=== PATIENT | male | born 1955 | race Caucasian/White ===

== ENCOUNTER 2017-02-13 13:16 | Inpatient (IN) | payer BC, OTHER ==
--- NOTE | 2017-02-13 13:51 | ED ---
General Adult HPI - General Source: police, EMS, RN notes reviewed, old records reviewed Mode of arrival: EMS Limitations: no limitations <Francisco Sibley - Last Filed: 02/13/17 15:56> <Garrett Bingham - Last Filed: 02/13/17 20:51> - General Chief complaint: Overdose Stated complaint: overdose Time Seen by Provider: 02/13/17 13:29 - History of Present Illness Initial comments: This is a 61-year-old male the ER for psychiatric evaluation patient coming in the ER after suicide attempt. Patient attended suicide by taking benzodiazepines with alcohol. Patient is somnolent upon examination but protecting airway and breathing appropriately. (Francisco Sibley) - Related Data Home Medications Medication Instructions Recorded Confirmed Ascorbic Acid [Vitamin C] 500 mg PO DAILY 02/13/17 02/13/17 Aspirin EC [Ecotrin Low Dose] 81 mg PO DAILY 02/13/17 02/13/17 Cholecalciferol [Vitamin D3] 5,000 unit PO DAILY 02/13/17 02/13/17 Diazepam [Valium] 5 mg PO HS 02/13/17 02/13/17 Eszopiclone [Lunesta] 2 mg PO HS 02/13/17 02/13/17 Famotidine [Pepcid] 40 mg PO DAILY 02/13/17 02/13/17 Finasteride [Proscar] 5 mg PO DAILY 02/13/17 02/13/17 Losartan [Cozaar] 50 mg PO DAILY 02/13/17 02/13/17 Methylphenidate HCl [Ritalin] 5 mg PO TID 02/13/17 02/13/17 Methylphenidate HCl [Ritalin] 10 mg PO TID 02/13/17 02/13/17 Multivitamins, Thera [Multivitamin 1 tab PO DAILY 02/13/17 02/13/17 (formulary)] [place]-3 Fatty Acids/Fish Oil [Fish 1 cap PO DAILY 02/13/17 02/13/17 Oil 1,000 mg Softgel] Sertraline [Zoloft] 50 mg PO DAILY 02/13/17 02/13/17 Sildenafil [Revatio] 20 mg PO ONCE PRN 02/13/17 02/13/17 Simvastatin [Zocor] 40 mg PO HS 02/13/17 02/13/17 Testosterone Cypionate 200 mg IM Q14D 02/13/17 02/13/17 [Depo-Testosterone] Allergies Allergy/AdvReac Type Severity Reaction Status Date / Time No Known Allergies Allergy Verified 02/13/17 13:49 Review of Systems ROS Other: All systems not noted in ROS Statement are negative. <Francisco Sibley - Last Filed: 02/13/17 15:56> ROS Other: All systems not noted in ROS Statement are negative. <Garrett Bingham - Last Filed: 02/13/17 20:51> ROS Statement: Those systems with pertinent positive or pertinent negative responses have been documented in the HPI. Past Medical History Past Medical History: Diabetes Mellitus, GERD/Reflux, Prostate Disorder History of Any Multi-Drug Resistant Organisms: None Reported Past Surgical History: No Surgical Hx Reported Past Psychological History: Anxiety, Bipolar, Depression, PTSD Smoking Status: Never smoker Past Alcohol Use History: Occasional Past Drug Use History: None Reported <Francisco Sibley - Last Filed: 02/13/17 15:56> General Exam Limitations: no limitations General appearance: alert, in no apparent distress Head exam: Present: atraumatic, normocephalic, normal inspection Eye exam: Present: normal appearance, PERRL, EOMI. Absent: scleral icterus, conjunctival injection, periorbital swelling ENT exam: Present: normal exam, mucous membranes moist Neck exam: Present: normal inspection. Absent: tenderness, meningismus, lymphadenopathy Respiratory exam: Present: normal lung sounds bilaterally. Absent: respiratory distress, wheezes, rales, rhonchi, stridor Cardiovascular Exam: Present: regular rate, normal rhythm, normal heart sounds. Absent: systolic murmur, diastolic murmur, rubs, gallop, clicks GI/Abdominal exam: Present: soft, normal bowel sounds. Absent: distended, tenderness, guarding, rebound, rigid Extremities exam: Present: normal inspection, full ROM, normal capillary refill. Absent: tenderness, pedal edema, joint swelling, calf tenderness Back exam: Present: normal inspection Neurological exam: Present: alert, oriented X3, CN II-XII intact Psychiatric exam: Present: normal affect, normal mood Skin exam: Present: warm, dry, intact, normal color. Absent: rash <Francisco Sibley - Last Filed: 02/13/17 15:56> EKG Findings - EKG Comments: EKG Findings:: EKG shows normal sinus rhythm rate of 91, [place] 158, QRS 104, QTC 442 <Francisco Sibley - Last Filed: 02/13/17 15:56> Medical Decision Making - Lab Data Result diagrams: 02/13/17 14:20 02/13/17 14:20 <Francisco Sibley - Last Filed: 02/13/17 15:56> - Lab Data Result diagrams: 02/13/17 14:20 02/13/17 14:20 <Garrett Bingham - Last Filed: 02/13/17 20:51> - Medical Decision Making Patient was seen by mental health services, who will admit. (Garrett Bingham) - Lab Data Lab Results 02/13/17 02/13/17 02/13/17 Range/Units 14:20 14:20 14:20 WBC 3.9 (3.8-10.6) k/uL RBC 5.36 (4.30-5.90) m/uL Hgb 15.8 (13.0-17.5) gm/dL Hct 46.3 (39.0-53.0) % MCV 86.4 (80.0-100.0) fL MCH 29.4 (25.0-35.0) pg MCHC 34.1 (31.0-37.0) g/dL RDW 13.4 (11.5-15.5) % Plt Count 147 L (150-450) k/uL Neutrophils % 68 % Lymphocytes % 21 % Monocytes % 7 % Eosinophils % 1 % Basophils % 0 % Neutrophils # 2.6 (1.3-7.7) k/uL Lymphocytes # 0.8 L (1.0-4.8) k/uL Monocytes # 0.3 (0-1.0) k/uL Eosinophils # 0.1 (0-0.7) k/uL Basophils # 0.0 (0-0.2) k/uL Sodium 144 (137-145) mmol/L Potassium 4.5 (3.5-5.1) mmol/L Chloride 109 H (98-107) mmol/L Carbon Dioxide 25 (22-30) mmol/L Anion Gap 10 mmol/L BUN 15 (9-20) mg/dL Creatinine 0.65 L (0.66-1.25) mg/dL Est GFR (MDRD) Af Amer >60 (>60 ml/min/1.73 sqM) Est GFR (MDRD) Non-Af >60 (>60 ml/min/1.73 sqM) Glucose 114 H (74-99) mg/dL Calcium 9.5 (8.4-10.2) mg/dL Total Bilirubin 0.6 (0.2-1.3) mg/dL AST 35 (17-59) U/L ALT 39 (21-72) U/L Alkaline Phosphatase 77 (38-126) U/L Total Creatine Kinase 158 (55-170) U/L CK-MB (CK-2) 2.5 H* (0.0-2.4) ng/mL CK-MB (CK-2) Rel Index 1.6 Total Protein 7.6 (6.3-8.2) g/dL Albumin 4.4 (3.5-5.0) g/dL Urine Color Urine Appearance (Clear) Urine pH (5.0-8.0) Ur Specific [place] (1.001-1.035) Urine Protein (Negative) Urine Glucose (UA) (Negative) Urine Ketones (Negative) Urine Blood (Negative) Urine Nitrite (Negative) Urine Bilirubin (Negative) Urine Urobilinogen (<2.0) mg/dL Ur Leukocyte Esterase (Negative) Salicylates <1.0 mg/dL Urine Opiates Screen (NotDetected) Ur Oxycodone Screen (NotDetected) Urine Methadone Screen (NotDetected) Ur Propoxyphene Screen (NotDetected) Acetaminophen <10.0 ug/mL Ur Barbiturates Screen (NotDetected) U Tricyclic Antidepress (NotDetected) Ur Phencyclidine Scrn (NotDetected) Ur Amphetamines Screen (NotDetected) U Methamphetamines Scrn (NotDetected) U Benzodiazepines Scrn (NotDetected) Urine Cocaine Screen (NotDetected) U Marijuana (THC) Screen (NotDetected) Serum Alcohol 49 mg/dL 02/13/17 Range/Units 14:20 WBC (3.8-10.6) k/uL RBC (4.30-5.90) m/uL Hgb (13.0-17.5) gm/dL Hct (39.0-53.0) % MCV (80.0-100.0) fL MCH (25.0-35.0) pg MCHC (31.0-37.0) g/dL RDW (11.5-15.5) % Plt Count (150-450) k/uL Neutrophils % % Lymphocytes % % Monocytes % % Eosinophils % % Basophils % % Neutrophils # (1.3-7.7) k/uL Lymphocytes # (1.0-4.8) k/uL Monocytes # (0-1.0) k/uL Eosinophils # (0-0.7) k/uL Basophils # (0-0.2) k/uL Sodium (137-145) mmol/L Potassium (3.5-5.1) mmol/L Chloride (98-107) mmol/L Carbon Dioxide (22-30) mmol/L Anion Gap mmol/L BUN (9-20) mg/dL Creatinine (0.66-1.25) mg/dL Est GFR (MDRD) Af Amer (>60 ml/min/1.73 sqM) Est GFR (MDRD) Non-Af (>60 ml/min/1.73 sqM) Glucose (74-99) mg/dL Calcium (8.4-10.2) mg/dL Total Bilirubin (0.2-1.3) mg/dL AST (17-59) U/L ALT (21-72) U/L Alkaline Phosphatase (38-126) U/L Total Creatine Kinase (55-170) U/L CK-MB (CK-2) (0.0-2.4) ng/mL CK-MB (CK-2) Rel Index Total Protein (6.3-8.2) g/dL Albumin (3.5-5.0) g/dL Urine Color Colorless Urine Appearance Clear (Clear) Urine pH 5.0 (5.0-8.0) Ur Specific [place] 1.003 (1.001-1.035) Urine Protein Negative (Negative) Urine Glucose (UA) Negative (Negative) Urine Ketones Negative (Negative) Urine Blood Negative (Negative) Urine Nitrite Negative (Negative) Urine Bilirubin Negative (Negative) Urine Urobilinogen <2.0 (<2.0) mg/dL Ur Leukocyte Esterase Negative (Negative) Salicylates mg/dL Urine Opiates Screen Not Detected (NotDetected) Ur Oxycodone Screen Not Detected (NotDetected) Urine Methadone Screen Not Detected (NotDetected) Ur Propoxyphene Screen Not Detected (NotDetected) Acetaminophen ug/mL Ur Barbiturates Screen Not Detected (NotDetected) U Tricyclic Antidepress Not Detected (NotDetected) Ur Phencyclidine Scrn Not Detected (NotDetected) Ur Amphetamines Screen Not Detected (NotDetected) U Methamphetamines Scrn Not Detected (NotDetected) U Benzodiazepines Scrn Detected H (NotDetected) Urine Cocaine Screen Not Detected (NotDetected) U Marijuana (THC) Screen Not Detected (NotDetected) Serum Alcohol mg/dL Disposition <Francisco Sibley - Last Filed: 02/13/17 15:56> <Garrett Bingham - Last Filed: 02/13/17 20:51> Clinical Impression: Depression, Suicide attempt Disposition: TRANSFER TO PSYCH HOSP/UNIT
[2017-02-13] MEDS ORDERED: NALOXONE 0.4 MG/ML 10 ML VIAL IVP STA (13:57)
[2017-02-13 14:47] LABS: Appearance,Urine Clear (Clear); Bilirubin,Urine Negative (Negative); Glucose,Urine (UA) Negative (Negative); Ketones,Urine Negative (Negative); Leukocyte Esterase,Urine Negative (Negative); Nitrite,Urine Negative (Negative); Protein,Urine Negative (Negative); Specific Gravity,Urine 1.003 (1.001-1.035); UA Billing (MACRO vs. MICRO) CHEM; Urobilinogen,Urine <2.0 mg/dL (<2.0)
[2017-02-13 14:59] LABS: Basophils % (A) 0 %; CH 30.1; Eosinophils # (A) 0.1 k/uL (0-0.7); Eosinophils % (A) 1 %; HCT 46.3 % (39.0-53.0); HDW 2.88; HGB 15.8 gm/dL (13.0-17.5); Luc # (Auto) 0.09; Luc % (Auto) 2; Lymphocytes # (A) 0.8 k/uL (1.0-4.8); Lymphocytes % (A) 21 %; MCH 29.4 pg (25.0-35.0); MCHC 34.1 g/dL (31.0-37.0); MCV 86.4 fL (80.0-100.0); Mean Platelet Volume 7.6; Monocytes # (A) 0.3 k/uL (0-1.0); Monocytes % (A) 7 %; Neutrophils # (A) 2.6 k/uL (1.3-7.7); Neutrophils % (A) 68 %; RBC 5.36 m/uL (4.30-5.90); RDW 13.4 % (11.5-15.5); WBC 3.9 k/uL (3.8-10.6); WBC (Perox) 3.68
[2017-02-13 15:12] LABS: ALT 39 U/L (21-72); AST 35 U/L (17-59); Acetaminophen <10.0 ug/mL; Alcohol 49 mg/dL; Alkaline Phosphatase 77 U/L (38-126); Anion Gap 10 mmol/L; Blood Urea Nitrogen 15 mg/dL (9-20); Calcium 9.5 mg/dL (8.4-10.2); Carbon Dioxide 25 mmol/L (22-30); Chloride 109 mmol/L (98-107); Glucose 114 mg/dL (74-99); Non-African American GFR(MDRD) >60 (>60 ml/min/1.73 sqM); Potassium 4.5 mmol/L (3.5-5.1); Salicylate <1.0 mg/dL; Sodium 144 mmol/L (137-145); Total Bilirubin 0.6 mg/dL (0.2-1.3); Total Protein 7.6 g/dL (6.3-8.2)
[2017-02-13 15:31] LABS: Creatine Kinase MB 2.5 ng/mL (0.0-2.4)
[2017-02-14] MEDS ORDERED: MAGNESIUM HYDROXIDE 2,400 MG/10 ML CUP PO PRN (03:11)
[2017-02-14] MEDS ORDERED: ACETAMINOPHEN TAB 325 MG TAB PO PRN (03:11)
[2017-02-14] MEDS ORDERED: MAG HYDROX/AL HYDROX/SIMETH 30 ML CUP PO PRN (03:11)
[2017-02-14] MEDS ORDERED: NICOTINE 14MG/24HR PATCH TRANSDERM SCH (09:00)
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
--- NOTE | 2017-02-14 12:18 | P.CONS ---
History of Present Illness - Reason for Consult Consult date: 02/14/17 Medical management Requesting physician: Kai Diaz - Chief Complaint Depression with suicidal ideation - History of Present Illness This is a 61-year-old male, patient of [facility]. He has a known past medical history of GERD, BPH, anxiety, bipolar, depression and posterior max stress disorder. Patient is difficult to obtain history from. He is lying in bed and only answer a few questions at a time. Most of information was taken from the chart. It appears patient was brought into the emergency room after a petition was completed by the police. Patient had taken 55 Valium and a bottle of wine to intentionally overdose. Patient was therefore admitted to the psychiatric unit. We have been consulted for medical management. Urinalysis positive for benzo diazepam. Alcohol level was 49. Patient is currently sleepy. Denies any abdominal pain. Denies a nausea or vomiting. He is arousable able to answer a few questions. But is not very forthcoming with information. He does have flat affect. Arms are crossed his chest laying in bed and will open his eyes. He denies any chest pain or shortness of breath. Denies any burning with urination or any difficulty urinating. Patient denies any daily heavy alcohol use. Review of Systems Please refer to HPI otherwise unremarkable Past Medical History Past Medical History: Diabetes Mellitus, GERD/Reflux, Prostate Disorder History of Any Multi-Drug Resistant Organisms: None Reported Past Surgical History: No Surgical Hx Reported Past Psychological History: Anxiety, Bipolar, Depression, PTSD Smoking Status: Never smoker Past Alcohol Use History: Occasional Past Drug Use History: None Reported Medications and Allergies Home Medications Medication Instructions Recorded Confirmed Type Ascorbic Acid [Vitamin C] 500 mg PO DAILY 02/13/17 02/14/17 History Aspirin EC [Ecotrin Low Dose] 81 mg PO DAILY 02/13/17 02/14/17 History Cholecalciferol [Vitamin D3] 5,000 unit PO DAILY 02/13/17 02/14/17 History Diazepam [Valium] 5 mg PO HS 02/13/17 02/14/17 History Eszopiclone [Lunesta] 2 mg PO HS 02/13/17 02/14/17 History Famotidine [Pepcid] 40 mg PO DAILY 02/13/17 02/14/17 History Finasteride [Proscar] 5 mg PO DAILY 02/13/17 02/14/17 History Losartan [Cozaar] 50 mg PO DAILY 02/13/17 02/14/17 History Methylphenidate HCl [Ritalin] 5 mg PO TID 02/13/17 02/14/17 History Methylphenidate HCl [Ritalin] 10 mg PO TID 02/13/17 02/14/17 History Multivitamins, Thera [Multivitamin 1 tab PO DAILY 02/13/17 02/14/17 History (formulary)] [place]-3 Fatty Acids/Fish Oil [Fish 1 cap PO DAILY 02/13/17 02/14/17 History Oil 1,000 mg Softgel] Sertraline [Zoloft] 50 mg PO DAILY 02/13/17 02/14/17 History Sildenafil [Revatio] 20 mg PO ONCE PRN 02/13/17 02/14/17 History Simvastatin [Zocor] 40 mg PO HS 02/13/17 02/14/17 History Testosterone Cypionate 200 mg IM Q14D 02/13/17 02/14/17 History [Depo-Testosterone] Allergies Allergy/AdvReac Type Severity Reaction Status Date / Time No Known Allergies Allergy Verified 02/14/17 05:40 Physical Exam Vitals: Vital Signs Pulse Resp BP Pulse Ox 02/14/17 00:58 68 16 108/71 96 Intake and Output 02/13/17 02/14/17 02/14/17 22:59 06:59 14:59 Intake Total 1000 Balance 1000 Intake: Amount of Fluid Infused ( 1000 ml) Other: Weight 91.6 kg Head normocephalic Neck supple Lungs clear to auscultation bilaterally no wheezing or crackles Heart regular rate and rhythm S1-S2, no rub or gallop Abdomen is soft nontender nondistended positive bowel sounds no hepatosplenomegaly Extremities no edema Neuro alert and orientated to 3 psychiatric flat affect. Lying in bed eyes closed with arms crossed chest. And she is very minimal questions. Results CBC & Chem 7: 02/13/17 14:20 02/13/17 14:20 Assessment and Plan Plan: 1. Major depressive disorder with suicidal ideation with attempt: Patient took about 55 Valium and a bottle wine. Has been admitted to the psychiatric unit. Agree with checking thyroid levels. EtOH level on admit 49 2. Reported history of traumatic brain injury 3. Hyperlipidemia continue Zocor 4. Benign prostatic hypertrophy: Continue with Proscar 5. Essential hypertension: Blood pressures have been on the lower side. We'll place parameters around the Cozaar to hold for systolic blood pressures less than 120. Continue monitoring vitals. 6. Reported past medical history of diabetes mellitus. Patient reports at one time he had been on hypoglycemic medication. However, his doctor took him off of it. Check hemoglobin A1c. Blood sugar on admission was 114 7. GERD resume Pepcid 8. History of generalized anxiety disorder, bipolar, depression and PTSD Thank you for this consultation. We will follow along as needed. Time with Patient: Greater than 30 (Greater than 50% of the total time spent in counseling and coordination of care.I performed an examination of the patient and discussed their management with the physician Consultant Rn. I have reviewed the Physician Consultant Rn's notes and agree with the documented findings and plan of care)
[2017-02-14 15:24] LABS: Hemoglobin A1C 5.5 % (4.2-6.1)
[2017-02-14] MEDS: ATORVASTATIN 20 MG TAB PO SCH (21:35)
--- NOTE | 2017-02-15 08:21 | P.PN ---
Progress Note - Text Interval history: The patient is found in the hallway he follows me to an interview room. The patient is alert and able to participate in the session today as compared to yesterday. He states that he did intent on ending his life with the overdose of Valium and alcohol. He states he feels overwhelmed by his 's hoarding behavior and can't tolerate it any longer. He now plans on from her and hopes that this will change her ways. He believes he does have support from family and they will be visiting. We discussed his previous medications. He does not feel that the Zoloft is provided any benefit he has been on a higher dose than last prescribed. We discussed options in terms of medication. Lacking insight the patient asks if he can be discharged this weekend. We discussed the seriousness of his overdose and that we need to appropriately evaluate him for safety risk. We also discussed the involuntary process that was started as he was not able to sign in. Mental status exam: The patient is alert he has a disheveled appearance he is dressed in hospital attire. Eye contact is appropriate speech is fluent spontaneous nonpressured. 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 Affect is blunted. He is reporting no suicidal or homicidal thoughts today. He is endorsing no auditory or visual hallucinations. He demonstrates no verbal or physical aggressiveness. Insight and judgment impaired. Plan: The patient will start on Lexapro 10 mg daily as we will replace the Zoloft. He has Ativan as needed. We will defer restarting the Ritalin. We will monitor him for safety and encourage his participation in the milieu. Vital signs reviewed.
[2017-02-15] MEDS ORDERED: NON-FORMULARY DRUG (Omega-3 Fatty Acids/Fish Oil [Fish Oil 1,000 Mg Softgel] 1 CAP) PO SCH (09:00)
[2017-02-15] MEDS: ASPIRIN 81 MG CHEW PO SCH (09:32)
[2017-02-15] MEDS: ESCITALOPRAM 10 MG TAB PO SCH (09:32)
[2017-02-15] MEDS: FAMOTIDINE 20 MG TAB PO SCH (09:32)
[2017-02-15] MEDS: FINASTERIDE 5 MG TAB PO SCH (09:33)
[2017-02-15] MEDS: LOSARTAN 50 MG TAB PO SCH (09:33)
[2017-02-15 11:22] LABS: Basophils % (A) 0 %; CH 30.1; CHCM 35.2; Eosinophils # (A) 0.1 k/uL (0-0.7); Eosinophils % (A) 2 %; HCT 44.6 % (39.0-53.0); HDW 2.88; HGB 15.1 gm/dL (13.0-17.5); Luc # (Auto) 0.09; Luc % (Auto) 2; Lymphocytes # (A) 1.3 k/uL (1.0-4.8); Lymphocytes % (A) 29 %; MCHC 33.8 g/dL (31.0-37.0); MCV 85.9 fL (80.0-100.0); Mean Platelet Volume 7.6; Monocytes # (A) 0.4 k/uL (0-1.0); Monocytes % (A) 8 %; Neutrophils # (A) 2.6 k/uL (1.3-7.7); Neutrophils % (A) 59 %; RBC 5.19 m/uL (4.30-5.90); RDW 13.3 % (11.5-15.5); WBC 4.4 k/uL (3.8-10.6); WBC (Perox) 4.22
[2017-02-15 11:39] LABS: ALT 37 U/L (21-72); AST 24 U/L (17-59); Alkaline Phosphatase 65 U/L (38-126); Anion Gap 8 mmol/L; Blood Urea Nitrogen 15 mg/dL (9-20); Calcium 9.7 mg/dL (8.4-10.2); Carbon Dioxide 27 mmol/L (22-30); Chloride 106 mmol/L (98-107); Glucose 99 mg/dL (74-99); Non-African American GFR(MDRD) >60 (>60 ml/min/1.73 sqM); Potassium 3.8 mmol/L (3.5-5.1); Sodium 141 mmol/L (137-145); Total Bilirubin 0.5 mg/dL (0.2-1.3)
[2017-02-15] MEDS: CHOLECALCIFEROL 1,000 UNIT TAB PO SCH (13:23)
[2017-02-15] MEDS: MULTIVITAMINS, THERA 1 EACH TAB PO SCH (13:24)
[2017-02-15] MEDS ORDERED: ATORVASTATIN 20 MG TAB ONE (22:12)
[2017-02-15] MEDS ORDERED: LORazepam 1 MG TAB ONE (22:12)
--- NOTE | 2017-02-16 09:09 | P.PN ---
Progress Note - Text Interval history: The patient is found in the hallway he follows me to an interview room. He reports that his moods improving. He states he is glad that he survived the suicide attempt as he is more aware of how much this is impacted his family. He states that his daughters visited last evening. He continues to speak about being overwhelmed by his 's hoarding behavior. He feels that financially he has been taken advantage of. He plans to separate from his by residing in a rental home that he owns. He has no questions or concerns regarding the Lexapro. Mental status exam: The patient is alert he seated calmly eye contact is appropriate. Hygiene is adequate he is a disheveled appearance. He has spontaneous speech that is fluent and nonpressured. He is reporting no acute suicidal or homicidal ideation intent or plan he is reporting no auditory or visual hallucinations no specific delusions. He does not appear hypomanic or manic. He demonstrates no verbal or physical aggressiveness. Insight and judgment improving. Plan: The patient will be continued on the Lexapro. We will continue to monitor him for safety. He is demonstrating future oriented thinking. We will have long term care social worker arrange a support meeting that will likely involve his daughters. Vital signs reviewed.
[2017-02-16] MEDS: LOSARTAN 50 MG TAB PO SCH (09:39)
[2017-02-16] MEDS: ESCITALOPRAM 10 MG TAB PO SCH (09:39)
[2017-02-16] MEDS: ASPIRIN 81 MG CHEW PO SCH (09:39)
[2017-02-16] MEDS: FAMOTIDINE 20 MG TAB PO SCH (09:39)
[2017-02-16] MEDS: FINASTERIDE 5 MG TAB PO SCH (09:40)
[2017-02-16] MEDS: MULTIVITAMINS, THERA 1 EACH TAB PO SCH (12:53)
[2017-02-16] MEDS: CHOLECALCIFEROL 1,000 UNIT TAB PO SCH (12:53)
[2017-02-16] MEDS: ATORVASTATIN 20 MG TAB PO SCH ×2 (18:10→21:29)
[2017-02-16] MEDS: LORazepam 1 MG TAB PO PRN (21:30)
--- NOTE | 2017-02-17 09:11 | P.PN ---
Progress Note - Text Interval history: The patient is found in the dining room he follows me to an interview room. He reports that sleep is stable appetite is stable. He had more visits from his children yesterday. He again explains the circumstances precipitating the overdose. He felt completely overwhelmed by his 's hoarding behavior and some mismanagement of finances. He is convinced that he needs to move out into another home that he owns to give her time to decide if she will change her behavior or if they will permanently separate. He feels supported by his children. We discussed social work initiating a family meeting and he is agreeable. We have been using Lexapro he has no questions or concerns regarding that medication. Mental status exam: The patient is alert pleasant cooperative. He has a disheveled appearance hygiene is good. He is dressed in his own clothing wearing jeans and a sweatshirt. Speech is fluent spontaneous nonpressured. He is verbose but easily directable. He is reporting no acute suicidal ideation intent or plan since he's been in the hospital. He is endorsing no homicidal ideation intent or plan. He does have a history of head injury he can be direct with statements at times and may be concrete. Insight and judgment improving. He is reporting no auditory or visual hallucinations no specific delusions. He demonstrates no verbal or physical aggressiveness. He is oriented to person place and date. Plan: The patient's will continue on the Lexapro is written. He is encouraged to infrequently used Ativan. We discussed the possibility of him no longer taking benzodiazepines because of the safety risk. He is participating in the milieu he is encouraged to continue. Social work will be asked to arrange a support meeting. I believe the support meeting will provide us more information allowing us to decide a discharge date. He to monitor him for safety. Vital signs reviewed.
[2017-02-17] MEDS: ESCITALOPRAM 10 MG TAB PO SCH (09:47)
[2017-02-17] MEDS: ASPIRIN 81 MG CHEW PO SCH (09:47)
[2017-02-17] MEDS: FAMOTIDINE 20 MG TAB PO SCH (09:47)
[2017-02-17] MEDS: MULTIVITAMINS, THERA 1 EACH TAB PO SCH (09:48)
[2017-02-17] MEDS: LOSARTAN 50 MG TAB PO SCH (09:48)
[2017-02-17] MEDS: FINASTERIDE 5 MG TAB PO SCH (09:48)
[2017-02-17] MEDS: CHOLECALCIFEROL 1,000 UNIT TAB PO SCH (09:48)
[2017-02-17] MEDS: ATORVASTATIN 20 MG TAB PO SCH (21:13)
[2017-02-17] MEDS: LORazepam 1 MG TAB PO PRN (21:13)
[2017-02-18 06:16] VITALS: RESP 16
--- NOTE | 2017-02-18 09:16 | P.PN ---
Progress Note - Text Interval history: The patient is found in the hallway he follows me to an interview room. He reports that his moods improving. He is having any support meeting involving his oldest daughter today at 10 AM. He reports sleep is stable appetite is stable. He continues to describe the plan of living in his own home hoping that this will force his to change her hoarding behavior. He feels he will be supported by his children once discharged. He is reporting no questions or concerns regarding the Lexapro. Vital signs reviewed. Mental status exam: The patient is alert he is seated calmly eye contact is appropriate. He reports mood is improving. He is reporting no suicidal or homicidal ideation intent or plan. He is endorsing no auditory or visual hallucinations no specific delusions. He does not appear hypomanic or manic. He does struggle with short-term memory due to his head injury. Each day he really describes the circumstances precipitating this admission. Insight and judgment are chronically limited to some extent but grossly intact. He is fully oriented to person place and date. He demonstrates no verbal or physical aggressiveness. Plan: The patient will continue on his current psychotropic medication. We will await the results of the family meeting today. He does appear to be stabilizing. We will consider discharging him at the latest Friday. We continue to address his safety risk factors. I have made contact with his outpatient treating psychiatrist. We will continue monitoring him for safety.
[2017-02-18] MEDS: LOSARTAN 50 MG TAB PO SCH (10:17)
[2017-02-18] MEDS: FINASTERIDE 5 MG TAB PO SCH (10:17)
[2017-02-18] MEDS: ASPIRIN 81 MG CHEW PO SCH (10:18)
[2017-02-18] MEDS: ESCITALOPRAM 10 MG TAB PO SCH (10:19)
[2017-02-18] MEDS: FAMOTIDINE 20 MG TAB PO SCH (10:19)
[2017-02-18] MEDS: LORazepam 1 MG TAB PO PRN ×2 (13:00→21:33)
[2017-02-18] MEDS: MULTIVITAMINS, THERA 1 EACH TAB PO SCH (13:00)
[2017-02-18] MEDS: CHOLECALCIFEROL 1,000 UNIT TAB PO SCH (13:00)
[2017-02-18] MEDS: ATORVASTATIN 20 MG TAB PO SCH (21:32)
[2017-02-19 07:01] VITALS: BP 113/61; PULSE 59; TEMP 97.9
--- NOTE | 2017-02-19 09:35 | P.DS ---
Providers Date of admission: 02/13/17 23:36 Expected date of discharge: 02/19/17 Attending physician: Kai Diaz Consults: 02/14/17 03:11 Consult Physician Routine Consulting Provider: Geovanna Rubin Consult Reason/Comments: medical management Do you want consulting provider notified?: Yes, Notify in am Primary care physician: Tiffanie Colón - Discharge Diagnosis(es) (1) Major depressive disorder, recurrent severe without psychotic features Current Visit: Yes Status: Acute Priority: High (2) History of traumatic brain injury Current Visit: Yes Status: Acute Priority: Medium Hospital Course: This patient is a 61-year-old male who was admitted to the mental health unit after attempting suicide with overdose of benzodiazepines with alcohol. The patient had admitted to taking 55-60 Valium tablets and drank a bottle of wine. He had reported he does not want to live anymore and he was sick of living. Upon initial interview the patient refused to come to an interview room he was lethargic but did state he was suicidal. Once the effects of the Valium and alcohol wore off he became much more alert and cooperative. He described feeling overwhelmed by his 's hoarding behavior and couldn't reside in that home any longer. For full details please refer to my psychiatric evaluation dated 02/14/2017. Summary of hospital course: The patient was initially admitted on a petition and clinical certificate. I did complete a second clinical certificate as he was not able to sign in voluntarily at the time. He did sign a deferral agreement in the presence of his central station operator. The patient was started on Lexapro during the course of his stay. As soon as he became more alert and awake he attended groups he ate appropriately he cause no disruptive behavior. He does have a history of head injury which does affect his cognitive function. Each day he would retell me the story of being frustrated with his 's hoarding behavior and he can't live there any longer. Fortunately he has significant financial resources he has another home in the area in which she can live. He was visited by his children here on the mental health unit and finds them supportive. They are assisting him in moving into his own home. His daughter was present for a support meeting yesterday which went well. She indicated to social work that she will oversee the patient's medications. The patient is willing to continue working with his individual therapist and outpatient psychiatrist. Dr. Zimmerman was notified that the patient was admitted to the hospital. Mental status exam: The patient is alert he is pleasant and cooperative he has adequate hygiene grooming. He is dressed appropriately in his own clothing. Eye contact is good speech is fluent spontaneous nonpressured. He reports his mood is "better" affect is euthymic and congruent to reported mood. He denies having any suicidal or homicidal ideation intent or plan area he does not feel hopeless and in fact feels much more optimistic as he will have his own place that he is able to keep clean. He demonstrates future oriented thinking in stating that he wants to return to his job as he enjoys that activity. He is reporting no auditory or visual hallucinations he is reporting no specific delusions. There is no evidence of psychosis. He does not appear hypomanic or manic. He does chronically struggle with some cognitive deficits in the form of impaired concentration and short-term memory. He demonstrates no verbal or physical aggressiveness. He is oriented to person place and date. Impressions: 1. Major depressive disorder recurrent severe without psychosis, history traumatic brain injury causing cognitive deficits, anxiety unspecified 2. History traumatic brain injury, hyperlipidemia, benign prostatic hypertrophy , GERD, recent overdose with Valium and alcohol prior to this admission 3. Marital strain Plan: The patient will be discharged to the mental health unit today he will return to his own home. We believe that he is well supported by his children his daughter will check on him regularly and oversee his medications. He is prescribed Lexapro 10 mg daily. He may continue his Ritalin as prescribed by Dr. Zimmerman. It is recommended that he no longer use any benzodiazepines on a regular basis. He is instructed not to use alcohol or any illicit drugs. Social work will confirm his outpatient appointments. There is no imminent safety risk he is appropriate for transition back to outpatient care. He is instructed to return to the hospital if any acute safety concerns. Patient Condition at Discharge: Stable Plan - Discharge Summary New Discharge Prescriptions: Escitalopram [Lexapro] 10 mg PO DAILY #30 tab Discharge Medication List Ascorbic Acid [Vitamin C] 500 mg PO DAILY 02/13/17 [History] Aspirin EC [Ecotrin Low Dose] 81 mg PO DAILY 02/13/17 [History] Cholecalciferol [Vitamin D3] 5,000 unit PO DAILY 02/13/17 [History] Famotidine [Pepcid] 40 mg PO DAILY 02/13/17 [History] Finasteride [Proscar] 5 mg PO DAILY 02/13/17 [History] Losartan [Cozaar] 50 mg PO DAILY 02/13/17 [History] Methylphenidate HCl [Ritalin] 5 mg PO TID 02/13/17 [History] Methylphenidate HCl [Ritalin] 10 mg PO TID 02/13/17 [History] Multivitamins, Thera [Multivitamin (formulary)] 1 tab PO DAILY 02/13/17 [History ] [place]-3 Fatty Acids/Fish Oil [Fish Oil 1,000 mg Softgel] 1 cap PO DAILY [History] Sildenafil [Revatio] 20 mg PO ONCE PRN 02/13/17 [History] Simvastatin [Zocor] 40 mg PO HS 02/13/17 [History] Testosterone Cypionate [Depo-Testosterone] 200 mg IM Q14D 02/13/17 [History] Escitalopram [Lexapro] 10 mg PO DAILY #30 tab 02/19/17 [Rx] Follow up Appointment(s)/Referral(s): [facility] [Outside] - 02/27/17 10:40 am (Dr Zimmerman ) Tiffanie Colón DO [Primary Care Provider] - 1-2 days
[2017-02-19] MEDS: FINASTERIDE 5 MG TAB PO SCH (10:13)
[2017-02-19] MEDS: ASPIRIN 81 MG CHEW PO SCH (10:13)
[2017-02-19] MEDS: LOSARTAN 50 MG TAB PO SCH (10:13)
[2017-02-19] MEDS: ESCITALOPRAM 10 MG TAB PO SCH (10:14)
[2017-02-19] MEDS: FAMOTIDINE 20 MG TAB PO SCH (10:14)
== END 2017-02-19 12:48 | disposition home or self-care (01) | DRG 885 ==
LOC: EC 13:16 → 3MHU 23:36
PROVIDERS: ADMIT Psychiatry & Neurology Psychiatry; ATTEND Psychiatry & Neurology Psychiatry
DX: F33.2 Major depressive disorder, recurrent severe without psychotic features (principal); E11.9 Type 2 diabetes mellitus without complications; E78.5 Hyperlipidemia, unspecified; F43.10 Post-traumatic stress disorder, unspecified; K21.9 Gastro-esophageal reflux disease without esophagitis; N40.0 Benign prostatic hyperplasia without lower urinary tract symptoms; Z79.899 Other long term (current) drug therapy; Z87.820 Personal history of traumatic brain injury; Z91.5 Personal history of self-harm; Z79.82 Long term (current) use of aspirin
CPT/HCPCS: 36415; 80053; 80306; 80320; 81003; 82550; 82553; 83036; 83520; 84443; 85025; 93005

== ENCOUNTER 2019-09-14 21:48 | Emergency (ER) | payer BC, OTHER ==
--- NOTE | 2019-09-14 22:27 | XR ---
EXAMINATION TYPE: XR chest 2V DATE OF EXAM: 09/14/2019 COMPARISON: 01/28/2013 HISTORY: Cough TECHNIQUE: Frontal and lateral views of the chest are obtained. FINDINGS: Heart and mediastinum are normal. Lungs are clear. Diaphragm is normal. Bony thorax appear s normal. IMPRESSION: Normal chest. No change.
[2019-09-14] MEDS ORDERED: methylPREDNISolone SOD SUCCI 125 MG/2 ML VIAL IM ONE (23:29)
[2019-09-14] MEDS ORDERED: BENZONATATE 100 MG CAP PO STA (23:29)
[2019-09-14] MEDS ORDERED: IPRATROPIUM-ALBUTEROL 3 ML NEB INHALATION STA (23:29)
--- NOTE | 2019-09-15 00:15 | ED ---
URI HPI - General Chief Complaint: Upper Respiratory Infection Stated Complaint: Sinus infection Time Seen by Provider: 09/14/19 23:12 Source: patient Mode of arrival: ambulatory Limitations: no limitations - History of Present Illness Initial Comments: 63-year-old male patient presents to the emergency department today for evaluation of upper respiratory infection and fever. Patient states his been sick for the last month with cough, nasal congestion, and drainage. Patient states he did see his primary care physician was given antibiotics. States he did start to improve however approximately 5 days ago symptoms seemed to worsen again. States he has been taking Advil and [id number] cough medication for symptom relief. Patient states he feels like he is worsening rather than getting better. Denies sputum production. He denies any chest pain or shortness of breath. States he does feel like he is wheezing at times. Denies any histor y of COPD or history of cigarette use. Denies dizziness or weakness. Denies any palpitations. Patient denies any recent rash, abdominal pain, nausea, vomiting, diarrhea, constipation, back pain, numbness, tingling, hematuria, dysuria, urinary urgency, urinary frequency, headache, visual changes, or any other complaints. - Related Data Home Medications Medication Instructions Recorded Confirmed Ascorbic Acid [Vitamin C] 500 mg PO DAILY 02/13/17 02/14/17 Aspirin EC [Ecotrin Low Dose] 81 mg PO DAILY 02/13/17 02/14/17 Cholecalciferol [Vitamin D3 (25 5,000 unit PO DAILY 02/13/17 02/14/17 Mcg = 1000 Iu)] Famotidine [Pepcid] 40 mg PO DAILY 02/13/17 02/14/17 Finasteride [Proscar] 5 mg PO DAILY 02/13/17 02/14/17 Losartan [Cozaar] 50 mg PO DAILY 02/13/17 02/14/17 Methylphenidate HCl [Ritalin] 5 mg PO TID 02/13/17 02/14/17 Methylphenidate HCl [Ritalin] 10 mg PO TID 02/13/17 02/14/17 Multivitamins, Thera [Multivitamin 1 tab PO DAILY 02/13/17 02/14/17 (formulary)] [place]-3 Fatty Acids/Fish Oil [Fish 1 cap PO DAILY 02/13/17 02/14/17 Oil 1,000 mg Softgel] Sildenafil [Revatio] 20 mg PO ONCE PRN 02/13/17 02/14/17 Simvastatin [Zocor] 40 mg PO HS 02/13/17 02/14/17 Testosterone Cypionate 200 mg IM Q14D 02/13/17 02/14/17 [Depo-Testosterone] Previous Rx's Medication Instructions Recorded Escitalopram [Lexapro] 10 mg PO DAILY #30 tab 02/19/17 Albuterol Sulfate [Proair Hfa] 1 - 2 puff INHALATION Q6HR PRN #1 09/15/19 inhaler Benzonatate [Tessalon Perles] 100 mg PO TID #15 cap 09/15/19 predniSONE 50 mg PO DAILY #5 tablet 09/15/19 Allergies Allergy/AdvReac Type Severity Reaction Status Date / Time No Known Allergies Allergy Verified 09/14/19 22:04 Review of Systems ROS Statement: Those systems with pertinent positive or pertinent negative responses have been documented in the HPI. ROS Other: All systems not noted in ROS Statement are negative. Past Medical History Past Medical History: Diabetes Mellitus, GERD/Reflux, Prostate Disorder History of Any Multi-Drug Resistant Organisms: None Reported Past Surgical History: No Surgical Hx Reported Past Psychological History: Anxiety, Bipolar, Depression, PTSD Smoking Status: Never smoker Past Alcohol Use History: None Reported Past Drug Use History: None Reported General Exam Limitations: no limitations General appearance: alert, in no apparent distress, other (This is a well- developed, well-nourished adult male patient in no acute distress. Vital signs upon presentation are temperature 98.3F, pulse 104, respirations 20, blood pressure 112/71, pulse ox 95% on room air.) Eye exam: Present: normal appearance, PERRL, EOMI. Absent: scleral icterus, conjunctival injection, periorbital swelling ENT exam: Present: normal exam, normal oropharynx, mucous membranes moist, TM's normal bilaterally Neck exam: Present: normal inspection. Absent: tenderness, meningismus, lymphadenopathy Respiratory exam: Present: normal lung sounds bilaterally. Absent: respiratory distress, wheezes, rales, rhonchi, stridor Cardiovascular Exam: Present: regular rate, normal rhythm, normal heart sounds. Absent: systolic murmur, diastolic murmur, rubs, gallop, clicks GI/Abdominal exam: Present: soft, normal bowel sounds. Absent: distended, tenderness, guarding, rebound, rigid Neurological exam: Present: alert, oriented X3, CN II-XII intact Psychiatric exam: Present: normal affect, normal mood Skin exam: Present: warm, dry, intact, normal color. Absent: rash Course Vital Signs 09/14/19 09/14/19 09/14/19 22:02 23:21 23:55 Temperature 98.3 F 99.2 F Pulse Rate 104 H 90 Respiratory 20 19 Rate Blood Pressure 112/71 136/73 O2 Sat by Pulse 95 97 Oximetry 09/15/19 09/15/19 09/15/19 00:01 00:09 00:46 Temperature 98.5 F Pulse Rate 91 89 96 Respiratory 18 Rate Blood Pressure 144/83 O2 Sat by Pulse 96 Oximetry Medical Decision Making - Medical Decision Making 63-year-old male patient presents to the emergency department today for evaluation of upper respiratory symptoms and fever. Physical examination did reveal clear equal lung sounds. He is in no respiratory distress. Chest x-ray was obtained and showed no acute cardiopulmonary process. He did test positive for influenza A. Patient has completed prescriptions for Cefdinir and azithromycin. I did discuss findings and results with the patient. We did discuss viral illness as a cause for his symptoms. He will be treated symptomatically with Tessalon Perles, pro-air, and prednisone. He is instructed follow up with his primary care physician for recheck in 1-2 days. Return parameters were discussed in detail. He verbalizes understanding and agrees with this plan. - Lab Data Lab Results 09/14/19 Range/Units 22:06 Influenza Type A RNA Detected H (Not Detectd) Influenza Type B (PCR) Not Detected (Not Detectd) - Radiology Data Radiology results: report reviewed, image reviewed Two-view x-ray of the chest is obtained. Report was reviewed in its entirety. Impression by Dr. Lopez shows normal chest. No change. Disposition Clinical Impression: Influenza A Disposition: HOME SELF-CARE Condition: Good Instructions (If sedation given, give patient instructions): Influenza (ED), U pper Respiratory Infection (ED) Additional Instructions: Increase fluids. Complete medications as directed. Follow-up through primary care physician for recheck in 1-2 days. Return to the emergency department immediately for any new, worsening, or concerning symptoms. Prescriptions: predniSONE 50 mg PO DAILY #5 tablet Albuterol Sulfate [Proair Hfa] 1 - 2 puff INHALATION Q6HR PRN #1 inhaler PRN Reason: Shortness Of Breath Benzonatate [Tessalon Perles] 100 mg PO TID #15 cap Is patient prescribed a controlled substance at d/c from ED?: No Referrals: Tiffanie Colón DO [Primary Care Provider] - 1-2 days Time of Disposition: 00:15
[2019-09-15 00:47] VITALS: BP 144/83; PULSE 96; RESP 18; TEMP 98.5
== END 2019-09-15 00:47 | disposition home or self-care (01) ==
LOC: EC 21:48
DX: J10.1 Influenza due to other identified influenza virus with other respiratory manifestations (principal); K21.9 Gastro-esophageal reflux disease without esophagitis; N42.9 Disorder of prostate, unspecified; Z79.82 Long term (current) use of aspirin; Z79.890 Hormone replacement therapy; Z79.899 Other long term (current) drug therapy
CPT/HCPCS: 94640; 87502; 71046; 99284; 96372; J2930

== ENCOUNTER 2020-10-27 08:42 | Day surgery (SDC) | payer BC, MEDICARE ==
[2020-10-25 10:46] VITALS: BMI 29.8
[~2020-10-27 08:42] MED LIST: LACTATED RINGERS 1,000 ML IV SCH; LIDOCAINE 1% (10MG/ML) FOR IV START INTRADERMA PRN
[2020-10-27 08:55] VITALS: TEMP 97.1
[2020-10-27] MEDS ORDERED: LIDOCAINE 1% INJ 10MG/ML (20 ML MDV) ONE (09:13)
[2020-10-27] MEDS ORDERED: PROPOFOL 10 MG/ML 20 ML VIAL IV ONE (09:13)
--- NOTE | 2020-10-27 09:44 | P.PCN ---
Date of Procedure: 10/27/20 Procedure(s) Performed: Brief history: Patient is a pleasant 64-year-old white male scheduled for an elective upper endoscopy as well as colonoscopy as a part of evaluation of reflux and history of GERD and screening for colon cancer. Procedure performed: Esophagogastroduodenoscopy with biopsy Colonoscopy with snare polypectomy Preoperative diagnosis: GERD Screening for colon cancer Anesthesia: MAC Procedure: After informed consent was obtained from the patient was brought into the endoscopy unit and IV sedation was administered by anesthesia under continuous monitoring. Initially upper endoscopy was done. The Olympus GF 160 video endoscope was inserted inserted into the mouth and esophagus intubated without any difficulty and was gradually advanced into the stomach and duodenum and carefully examined. The bulb and second part of the duodenum appeared normal. The scope was then withdrawn into the stomach adequately insufflated with air and upon careful examination the antrum of the 5 mm submucosal nodule identified which was biopsied. There was mild gastritis and small gastric polyps noted. The body, cardia and fundus appeared normal. The scope was then withdrawn into the esophagus. The GE junction was located at 40 cm to the incisors. It appeared regular with no erythema erosions or ulcerations. Rest of the esophagus appeared normal. Patient tolerated the procedure well. At this time the patient continued to remain sedation. Initial digital rectal examination was normal. Olympus CF 160 video colonoscope was then inserted into the rectum and gradually advanced to the cecum without any difficulty. Careful examination was performed as the scope was gradually being withdrawn. The prep was excellent. The cecum, ascending colon, appeared normal. In the transverse colon there was a 1 cm flat polyp removed by snare polypectomy. Rest of the transverse colon, descending colon, sigmoid colon and rectum appeared normal. Moderate sigmoid diverticulosis seen. Retroflexion was performed in the rectum and no lesions were noted. Patient tolerated the procedure well. Impression: 1. Upper endoscopy revealed 5 mm mucosal nodule in the antrum mild gastritis and small gastric polyps 2. Colonoscopy revealed 1 cm transverse colon polyp status post polypectomy and moderate sigmoid diverticulosis Recommendations: Findings of this examination were discussed with the patient as well as his family. He was advised to follow with the biopsy results. Biopsies have a repeat colonoscopy in 3 years. In the meantime he will remain on Prilosec 20 mg daily and continue to follow antireflux measures.
[2020-10-27 09:48] VITALS: RESP 18
[2020-10-27 10:04] VITALS: BP 132/78; PULSE 67
== END 2020-10-27 10:45 | disposition home or self-care (01) ==
LOC: ORWHC2ENDO 08:42
PROVIDERS: ATTEND Internal Medicine Gastroenterology
DX: Z12.11 Encounter for screening for malignant neoplasm of colon (principal); D12.3 Benign neoplasm of transverse colon; K21.9 Gastro-esophageal reflux disease without esophagitis; K31.9 Disease of stomach and duodenum, unspecified; K29.70 Gastritis, unspecified, without bleeding; K31.7 Polyp of stomach and duodenum; K57.30 Diverticulosis of large intestine without perforation or abscess without bleeding; I10 Essential (primary) hypertension; E78.5 Hyperlipidemia, unspecified; E11.9 Type 2 diabetes mellitus without complications; N40.0 Benign prostatic hyperplasia without lower urinary tract symptoms; Z79.82 Long term (current) use of aspirin; Z79.899 Other long term (current) drug therapy
CPT/HCPCS: 88305; 45385; 43239; J2001; J2704

== ENCOUNTER 2024-06-01 01:53 | Emergency (ER) | payer BC, MEDICARE ==
--- NOTE | 2024-06-01 02:14 | ED ---
Abdominal Pain HPI - General Chief Complaint: Abdominal Pain Stated Complaint: Abd pain Time Seen by Provider: 06/01/24 02:02 Source: patient, RN notes reviewed, old records reviewed Mode of arrival: ambulatory Limitations: no limitations - History of Present Illness Initial Comments: This is a 68-year-old male to the ER he presents for evaluation of sudden and severe onset of sudden anterior abdominal pain generalized abdominal pain that woke him from sleep. Patient had a bowel movement with no improvement was able to urinate without difficulty. Patient has no history of kidney stones, he does feel nauseous not vomiting is significantly anxious MD Complaint: abdominal pain -: hour(s) (1) Location: diffuse Radiation: none Severity: severe Severity scale (1-10): 10 Quality: stabbing, aching Consistency: constant Improves With: nothing Worsens With: nothing Associated Symptoms: nausea Treatments Prior to Arrival: other (0) - Related Data Home Medications Medication Instructions Recorded Confirmed Ascorbic Acid [Vitamin C] 500 mg PO DAILY 02/13/17 10/27/20 Aspirin EC [Ecotrin Low Dose] 81 mg PO DAILY 02/13/17 10/27/20 Cholecalciferol [Vitamin D3 (25 5,000 unit PO DAILY 02/13/17 10/27/20 Mcg = 1000 Iu)] Famotidine [Pepcid] 40 mg PO DAILY 02/13/17 10/27/20 Finasteride [Proscar] 5 mg PO DAILY 02/13/17 10/27/20 Losartan [Cozaar] 50 mg PO DAILY 02/13/17 10/27/20 Multivitamins, Thera [Multivitamin 1 tab PO DAILY 02/13/17 10/27/20 (formulary)] [place]-3 Fatty Acids/Fish Oil [Fish 1 cap PO DAILY 02/13/17 10/27/20 Oil 1,000 mg Softgel] Sildenafil [Revatio] 20 mg PO ONCE PRN 02/13/17 10/27/20 Simvastatin [Zocor] 40 mg PO HS 02/13/17 10/27/20 Testosterone Cypionate 200 mg IM Q14D 02/13/17 10/27/20 [Depo-Testosterone] Previous Rx's Medication Instructions Recorded Albuterol Sulfate [Proair Hfa] 1 - 2 puff INHALATION Q6HR PRN #1 09/15/19 inhaler Allergies Allergy/AdvReac Type Severity Reaction Status Date / Time No Known Allergies Allergy Verified 06/01/24 01:54 Review of Systems ROS Statement: Those systems with pertinent positive or pertinent negative responses have been documented in the HPI. ROS Other: All systems not noted in ROS Statement are negative. Past Medical History Past Medical History: Diabetes Mellitus, GERD/Reflux, Hyperlipidemia, Hypertension, Prostate Disorder Additional Past Medical History / Comment(s): DIET CONTROL DIABETES History of Any Multi-Drug Resistant Organisms: None Reported Past Surgical History: Hernia Repair Additional Past Surgical History / Comment(s): COLONOSCOPY. BILAT ING. HERNIA Past Anesthesia/Blood Transfusion Reactions: No Reported Reaction Past Psychological History: Anxiety, Bipolar, Depression, PTSD Smoking Status: Never smoker - Past Family History Mother Family Medical History: Cancer General Exam Limitations: no limitations General appearance: alert, in no apparent distress, anxious Head exam: Present: atraumatic, normocephalic, normal inspection Eye exam: Present: normal appearance, PERRL, EOMI. Absent: scleral icterus, conjunctival injection, periorbital swelling ENT exam: Present: normal exam, mucous membranes moist Neck exam: Present: normal inspection. Absent: tenderness, meningismus, lymphadenopathy Respiratory exam: Present: normal lung sounds bilaterally. Absent: respiratory distress, wheezes, rales, rhonchi, stridor Cardiovascular Exam: Present: regular rate, normal rhythm, normal heart sounds. Absent: systolic murmur, diastolic murmur, rubs, gallop, clicks GI/Abdominal exam: Present: soft, normal bowel sounds. Absent: distended, tenderness, guarding, rebound, rigid Extremities exam: Present: normal inspection, full ROM, normal capillary refill. Absent: tenderness, pedal edema, joint swelling, calf tenderness Back exam: Present: normal inspection Neurological exam: Present: alert, oriented X3, CN II-XII intact Psychiatric exam: Present: normal affect, normal mood Skin exam: Present: warm, dry, intact, normal color. Absent: rash Course Vital Signs 06/01/24 06/01/24 06/01/24 01:54 02:10 03:00 Temperature 98.1 F Pulse Rate 95 89 88 Respiratory 18 22 22 Rate Blood Pressure 186/83 167/104 172/139 O2 Sat by Pulse 96 97 97 Oximetry 06/01/24 06/01/24 06/01/24 04:00 05:00 06:35 Temperature 98.0 F Pulse Rate 91 90 89 Respiratory 17 16 16 Rate Blood Pressure 191/104 176/107 168/94 O2 Sat by Pulse 96 97 97 Oximetry - Reevaluation(s) Reevaluation #1: 06/01/24 02:14 Medical records reviewed Reevaluation #2: 06/01/24 05:27 Patient symptoms are improved Reevaluation #3: 06/01/24 05:27 Patient informed of results and questions answered Reevaluation #4: Was pt. sent in by a medical professional or institution (, ELINA, DIRECTOR OF FINANCIAL PLANNING, urgent care, hospital, or prison...) When possible be specific @ -no Did you speak to anyone other than the patient for history (EMS, parent, family, police, friend...)? What history was obtained from this source @ -no Did you review nursing and triage notes (agree or disagree)? Why? @ -agree Are old charts reviewed (outside hosp., previous admission, EMS record, old EKG, old radiological studies, urgent care reports/EKG's, prison records)? Report findings @ -yes Differential Diagnosis (chest pain, altered mental status, abdominal pain women, abdominal pain men, vaginal bleeding, weakness, fever, dyspnea, syncope, headache, dizziness, GI bleed, back pain, seizure, CVA, palpatations, mental health, musculoskeletal)? @ -prior EKG interpreted by me (3pts min.). @ -yes X-rays interpreted by me (1pt min.). @ -no CT interpreted by me (1pt min.). @ -yes negative for acute disease U/S interpreted by me (1pt. min.). @ -no What testing was considered but not performed or refused? (CT, X-rays, U/S, labs)? Why? @ -none What meds were considered but not given or refused? Why? @ -none Did you discuss the management of the patient with other professionals (professionals i.e. ELINA Carr, DIRECTOR OF FINANCIAL PLANNING, lab, RT, psych nurse, delinquency prevention social worker, production support engineer, teacher, philanthropy officer, rn case manager)? Give summary @ -no Was smoking cessation discussed for >3mins.? @ -no Was critical care preformed (if so, how long)? @ -no Were there social determinants of health that impacted care today? How? (Homelessness, low income, unemployed, alcoholism, drug addiction, transportation, low edu. Level, literacy, decrease access to med. care, halfway, rehab)? @ -none Was there de-escalation of care discussed even if they declined (Discuss DNR or withdrawal of care, Hospice)? DNR status @ -no What co-morbidities impacted this encounter? (DM, HTN, Smoking, COPD, CAD, Cancer, CVA, ARF, Chemo, Hep., AIDS, mental health diagnosis, sleep apnea, morbid obesity)? @ -none Was patient admitted / discharged? Hospital course, mention meds given and route, prescriptions, significant lab abnormalities, going to OR and other pertinent info. @ - 68 male to ER for evaluation abdominal pain severe abdominal pain resolved here in the ER patient feels well can be discharged home Discharge Undiagnosed new problem with uncertain prognosis? @ -no Drug Therapy requiring intensive monitoring for toxicity (Heparin, Nitro, Insulin, Cardizem)? @ -no Were any procedures done? @ -no Diagnosis/symptom? @ -Abdominal pain Acute, or Chronic, or Acute on Chronic? @ -Acute Uncomplicated (without systemic symptoms) or Complicated (systemic symptoms)? @ -Complicated Side effects of treatment? @ -no Exacerbation, Progression, or Severe Exacerbation? @ -exacerbation Poses a threat to life or bodily function? How? (Chest pain, USA, NM, pneumonia, PE, COPD, DKA, ARF, appy, cholecystitis, CVA, Diverticulitis, Homicidal, Suicidal, threat to staff... and all critical care pts) @ -yes chest pain abdominal pain Reevaluation #5: Differential Abdominal Pain Men: Appendicitis, cholecystitis, diverticulosis, ischemic bowel, pancreatitis, hepatitis, UTI, gastroenteritis, AAA, incarcerated hernia, bowel obstruction, constipation, inflammatory bowel, hepatitis, peptic ulcer disease, splenic infarction, perforated viscus, testicular torsion, this is not meant to be an all-inclusive list Medical Decision Making - Medical Decision Making 68 male to ER for evaluation abdominal pain severe abdominal pain resolved here in the ER patient feels well can be discharged home - Lab Data Result diagrams: 06/01/24 02:23 06/01/24 02:23 Lab Results 06/01/24 06/01/24 06/01/24 Range/Units 02:23 02:23 02:23 WBC 4.8 (3.8-10.6) k/uL RBC 5.10 (4.30-5.90) m/uL Hgb 15.0 (13.0-17.5) gm/dL Hct 44.6 (39.0-53.0) % MCV 87.4 (80.0-100.0) fL MCH 29.4 (25.0-35.0) pg MCHC 33.6 (31.0-37.0) g/dL RDW 13.1 (11.5-15.5) % Plt Count 171 (150-450) k/uL MPV 9.0 Neutrophils % 50 % Lymphocytes % 37 % Monocytes % 6 % Eosinophils % 4 % Basophils % 0 % Neutrophils # 2.4 (1.3-7.7) k/uL Lymphocytes # 1.8 (1.0-4.8) k/uL Monocytes # 0.3 (0-1.0) k/uL Eosinophils # 0.2 (0-0.7) k/uL Basophils # 0.0 (0-0.2) k/uL PT 10.5 (10.0-12.5) sec INR 0.9 (<1.2) APTT 20.8 L (22.0-30.0) sec Sodium 133 L (137-145) mmol/L Potassium 4.4 (3.5-5.1) mmol/L Chloride 102 (98-107) mmol/L Carbon Dioxide 26 (22-30) mmol/L Anion Gap 5 mmol/L BUN 22 H (9-20) mg/dL Creatinine 0.63 L (0.66-1.25) mg/dL Est GFR (CKD-EPI)AfAm >90 (>60 ml/min/1.73 sqM) Est GFR (CKD-EPI)NonAf >90 (>60 ml/min/1.73 sqM) Glucose 332 H (74-99) mg/dL Calcium 10.1 (8.4-10.2) mg/dL Magnesium 1.6 (1.6-2.3) mg/dL Total Bilirubin 0.7 (0.2-1.3) mg/dL AST 50 (17-59) U/L ALT 59 H (4-49) U/L Alkaline Phosphatase 107 (38-126) U/L Troponin I (0.000-0.034) ng/mL NT-Pro-B Natriuret Pep 122 pg/mL Total Protein 7.1 (6.3-8.2) g/dL Albumin 4.2 (3.5-5.0) g/dL Lipase 155 (23-300) U/L Urine Color Urine Appearance (Clear) Urine pH (5.0-8.0) Ur Specific [place] (1.001-1.035) Urine Protein (Negative) Urine Glucose (UA) (Negative) Urine Ketones (Negative) Urine Blood (Negative) Urine Nitrite (Negative) Urine Bilirubin (Negative) Urine Urobilinogen (<2.0) mg/dL Ur Leukocyte Esterase (Negative) 06/01/24 06/01/24 Range/Units 02:23 02:23 WBC (3.8-10.6) k/uL RBC (4.30-5.90) m/uL Hgb (13.0-17.5) gm/dL Hct (39.0-53.0) % MCV (80.0-100.0) fL MCH (25.0-35.0) pg MCHC (31.0-37.0) g/dL RDW (11.5-15.5) % Plt Count (150-450) k/uL MPV Neutrophils % % Lymphocytes % % Monocytes % % Eosinophils % % Basophils % % Neutrophils # (1.3-7.7) k/uL Lymphocytes # (1.0-4.8) k/uL Monocytes # (0-1.0) k/uL Eosinophils # (0-0.7) k/uL Basophils # (0-0.2) k/uL PT (10.0-12.5) sec INR (<1.2) APTT (22.0-30.0) sec Sodium (137-145) mmol/L Potassium (3.5-5.1) mmol/L Chloride (98-107) mmol/L Carbon Dioxide (22-30) mmol/L Anion Gap mmol/L BUN (9-20) mg/dL Creatinine (0.66-1.25) mg/dL Est GFR (CKD-EPI)AfAm (>60 ml/min/1.73 sqM) Est GFR (CKD-EPI)NonAf (>60 ml/min/1.73 sqM) Glucose (74-99) mg/dL Calcium (8.4-10.2) mg/dL Magnesium (1.6-2.3) mg/dL Total Bilirubin (0.2-1.3) mg/dL AST (17-59) U/L ALT (4-49) U/L Alkaline Phosphatase (38-126) U/L Troponin I <0.012 (0.000-0.034) ng/mL NT-Pro-B Natriuret Pep pg/mL Total Protein (6.3-8.2) g/dL Albumin (3.5-5.0) g/dL Lipase (23-300) U/L Urine Color Colorless Urine Appearance Clear (Clear) Urine pH 7.5 (5.0-8.0) Ur Specific [place] 1.042 H (1.001-1.035) Urine Protein Negative (Negative) Urine Glucose (UA) 4+ H (Negative) Urine Ketones Negative (Negative) Urine Blood Negative (Negative) Urine Nitrite Negative (Negative) Urine Bilirubin Negative (Negative) Urine Urobilinogen <2.0 (<2.0) mg/dL Ur Leukocyte Esterase Negative (Negative) - Radiology Data Radiology results: report reviewed (CT angio chest and CT abdomen pelvis is negative for acute disease), image reviewed Disposition Clinical Impression: Abdominal pain Disposition: HOME SELF-CARE Condition: Fair Instructions (If sedation given, give patient instructions): Abdominal Pain (ED) Is patient prescribed a controlled substance at d/c from ED?: No Referrals: Tiffanie Colón DO [Primary Care Provider] - 1-2 days Time of Disposition: 06:00
[2024-06-01 02:36] LABS: Basophils % (A) 0 %; Eosinophils # (A) 0.2 k/uL (0-0.7); Eosinophils % (A) 4 %; HCT 44.6 % (39.0-53.0); Lymphocytes # (A) 1.8 k/uL (1.0-4.8); Lymphocytes % (A) 37 %; MCH 29.4 pg (25.0-35.0); MCHC 33.6 g/dL (31.0-37.0); MCV 87.4 fL (80.0-100.0); Monocytes # (A) 0.3 k/uL (0-1.0); Monocytes % (A) 6 %; Neutrophils # (A) 2.4 k/uL (1.3-7.7); Neutrophils % (A) 50 %; Platelet Count 171 k/uL (150-450); RDW 13.1 % (11.5-15.5); WBC 4.8 k/uL (3.8-10.6)
[2024-06-01 02:48] LABS: ALT 59 U/L (4-49); AST 50 U/L (17-59); African American GFR (CKD) >90 (>60 ml/min/1.73 sqM); Albumin 4.2 g/dL (3.5-5.0); Alkaline Phosphatase 107 U/L (38-126); Anion Gap 5 mmol/L; Blood Urea Nitrogen 22 mg/dL (9-20); Calcium 10.1 mg/dL (8.4-10.2); Carbon Dioxide 26 mmol/L (22-30); Chloride 102 mmol/L (98-107); Glucose 332 mg/dL (74-99); Lipase 155 U/L (23-300); Magnesium 1.6 mg/dL (1.6-2.3); Non-African American GFR(CKD) >90 (>60 ml/min/1.73 sqM); Potassium 4.4 mmol/L (3.5-5.1); Sodium 133 mmol/L (137-145); Total Bilirubin 0.7 mg/dL (0.2-1.3); Total Protein 7.1 g/dL (6.3-8.2)
[2024-06-01 02:53] LABS: INR 0.9 (<1.2); Partial Thromboplastin Time 20.8 sec (22.0-30.0); Prothrombin Time 10.5 sec (10.0-12.5)
[2024-06-01 02:57] LABS: NT-Pro-B-Type Natriuretic Pept 122 pg/mL
[2024-06-01] MEDS: MORPHINE SULFATE 4 MG/ML SYRINGE IV STA (03:07)
[2024-06-01] MEDS: SODIUM CHLORIDE 0.9% 1,000 ML IV STA ×2 (03:07→05:38)
--- NOTE | 2024-06-01 03:32 | CT ---
EXAM: CT Angiography Chest With Intravenous Contrast CLINICAL HISTORY: ITS.REASON CT Reason: CP TECHNIQUE: Axial computed tomographic angiography images of the chest with intravenous contrast. CTDI is 12.4 mGy and DLP is 563.6 mGy-cm. This CT exam was performed using one or more of the following dose reduction techniques: automated exposure control, adjustment of the mA and/or kV according to patient size, and/or use of iterative reconstruction technique. MIP reconstructed images were created and reviewed. COMPARISON: No relevant prior studies available. FINDINGS: Pulmonary arteries: Unremarkable. No pulmonary embolism. Aorta: Atherosclerotic changes of the aorta. No thoracic aortic aneurysm. Lungs: Unremarkable. No mass. No consolidation. Pleural space: Unremarkable. No significant effusion. No pneumothorax. Heart: Unremarkable. No cardiomegaly. No significant pericardial effusion. No evidence of RV dysfunction. Bones/joints: Degenerative changes of the spine. No acute fracture. No dislocation. Soft tissues: Unremarkable. Lymph nodes: Unremarkable. No enlarged lymph nodes. Liver: Hepatic steatosis. Kidneys and ureters: LEFT renal cyst measures 1.6 cm. Stomach and bowel: Diverticulosis, without acute diverticulitis. No small bowel obstruction. No free intraperitoneal air. IMPRESSION: Diverticulosis, without acute diverticulitis. No small bowel obstruction. No free intraperitoneal air.
--- NOTE | 2024-06-01 03:50 | CT ---
EXAM: CT Abdomen and Pelvis With Intravenous Contrast CLINICAL HISTORY: CT Reason: CP TECHNIQUE: Axial computed tomography images of the abdomen and pelvis with intravenous contrast. CTDI is 11 mGy and DLP is 800.8 mGy-cm. This CT exam was performed using one or more of the following dose reduction techniques: automated exposure control, adjustment of the mA and/or kV according to patient size, and/or use of iterative reconstruction technique. COMPARISON: No relevant prior studies available. FINDINGS: Lung bases: Unremarkable. No mass. No consolidation. ABDOMEN: Liver: There is fatty infiltration of the liver and hepatomegaly with the liver measuring 21 cm craniocaudad. No focal liver mass lesion is seen. Gallbladder and bile ducts: Unremarkable. No calcified stones. No ductal dilation. Pancreas: Unremarkable. No mass. No ductal dilation. Spleen: Unremarkable. No splenomegaly. Adrenals: Unremarkable. No mass. Kidneys and ureters: Delayed images show normal renal contrast excretion bilaterally. There is a 1.9 cm simple cyst in the left kidney. No follow-up is required. No hydronephrosis. Stomach and bowel: See below. PELVIS: Appendix: The appendix is normal. Bowel loops are nondilated. There is extensive diverticulosis involving the colon, greatest involving the left and sigmoid colon without evidence of acute focal diverticulitis. No pneumoperitoneum, free fluid, or abscess is seen. Bladder: Unremarkable. No mass. Reproductive: Unremarkable as visualized. ABDOMEN and PELVIS: Intraperitoneal space: See above. Bones/joints: Mild degenerative changes in the spine. No acute fracture or subluxation is seen. Soft tissues: Unremarkable. Vasculature: The abdominal aorta is mildly calcified but nondilated. Lymph nodes: Unremarkable. No enlarged lymph nodes. IMPRESSION: 1. The appendix is normal. Bowel loops are nondilated. There is extensive diverticulosis involving the colon, greatest involving the left and sigmoid colon without evidence of acute focal diverticulitis. No pneumoperitoneum, free fluid, or abscess is seen. 2. There is fatty infiltration of the liver and hepatomegaly with the liver measuring 21 cm craniocaudad. No focal liver mass lesion is seen.
[2024-06-01 04:17] LABS: Appearance,Urine Clear (Clear); Bilirubin,Urine Negative (Negative); Blood,Urine Negative (Negative); Color,Urine Colorless; Glucose,Urine (UA) 4+ (Negative); Ketones,Urine Negative (Negative); Leukocyte Esterase,Urine Negative (Negative); Nitrite,Urine Negative (Negative); PH, Urine 7.5 (5.0-8.0); Protein,Urine Negative (Negative); Specific Gravity,Urine 1.042 (1.001-1.035); Urobilinogen,Urine <2.0 mg/dL (<2.0)
[2024-06-01] MEDS: HYDROmorphone 1 MG/ML 1 ML SYRINGE IVP STA (04:51)
[2024-06-01] MEDS: MAG HYDROX/AL HYDROX/SIMETH 30 ML CUP PO PRN (04:51)
[2024-06-01 05:12] VITALS: RESP 16
[2024-06-01] MEDS: ONDANSETRON 4 MG/2 ML VIAL IVP STA (05:38)
[2024-06-01] MEDS: PANTOPRAZOLE 40 MG/10 ML VIAL IVP STA (05:38)
[2024-06-01 06:44] VITALS: BP 168/94; PULSE 89; TEMP 98
== END 2024-06-01 06:52 | disposition home or self-care (01) ==
LOC: EC 01:53
CPT/HCPCS: 36415; 71275; 74177; 80053; 81003; 83690; 83735; 83880; 84484; 85025; 85610; 85730; 93005; 96361; 96374; 96375; 99284

== ENCOUNTER → 2024-09-07 | Outpatient (CLI) | payer MEDICARE ==
[2024-09-07 12:43] LABS: Appearance,Urine Clear (Clear); Bilirubin,Urine Negative (Negative); Blood,Urine Negative (Negative); Color,Urine Colorless; Glucose,Urine (UA) Trace (Negative); Ketones,Urine Negative (Negative); Leukocyte Esterase,Urine Negative (Negative); Nitrite,Urine Negative (Negative); PH, Urine 5.5 (5.0-8.0); Protein,Urine Negative (Negative); Specific Gravity,Urine 1.015 (1.001-1.035); Urobilinogen,Urine <2.0 mg/dL (<2.0)
[2024-09-07 14:57] LABS: HCT 45.1 % (39.6-50.0); HGB 15.3 g/dL (13.0-17.0); MCH 29.6 pg (27.0-32.0); MCHC 33.9 g/dL (32.0-37.0); MCV 87.2 FL (80.0-97.0); Mean Platelet Volume 11.2 FL (9.5-12.2); NRBC Per 100 WBC 0 X 10*3/uL (0.00-0.01); Platelet Count 169 X 10*3/uL (140-440); RBC 5.17 X 10*6/uL (4.40-5.60); RDW 13.3 % (11.5-14.5); WBC 5.16 X 10*3/uL (4.50-10.00)
[2024-09-07 15:15] LABS: BUN/Creat Ratio 22.29 Ratio (12.00-20.00); Blood Urea Nitrogen 15.6 mg/dL (9.0-27.0); Calcium 9.6 mg/dL (8.7-10.3); Carbon Dioxide 25.4 mmol/L (21.6-31.8); Chloride 100 mmol/L (96-109); Glucose 201 mg/dL (70-110); Potassium 4.9 mmol/L (3.5-5.5); Sodium 138 mmol/L (135-145)
== END | disposition home or self-care (01) ==
LOC: LABPAT 11:36
PROVIDERS: ATTEND Urology
DX: Z01.812 Encounter for preprocedural laboratory examination (principal); N52.9 Male erectile dysfunction, unspecified
CPT/HCPCS: 80048; 81003; 85027

== ENCOUNTER 2024-09-15 06:22 | Day surgery (SDC) | payer BC ==
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
[~2024-09-15 06:22] MED LIST changes: +AMPICILLIN 1,000 MG in SODIUM CHLORIDE 0.9% 50 ML IVPB PRN; +GENTAMICIN 120 MG in SODIUM CHLORIDE 0.9% 100 ML IVPB PRN; -LACTATED RINGERS 1,000 ML IV SCH; -LIDOCAINE 1% (10MG/ML) FOR IV START INTRADERMA PRN
[2024-09-15] MEDS: ONDANSETRON 4 MG/2 ML VIAL IVP ONE (07:10)
[2024-09-15] MEDS: DEXAMETHASONE SOD PHOSPHATE 4 MG/ML 1 ML VIAL IV ONE (07:10)
[2024-09-15] MEDS: LACTATED RINGERS 1,000 ML IV SCH (07:17)
[2024-09-15] MEDS ORDERED: PHENYLEPHRINE 10 MG/ML VIAL ONE (07:25)
[2024-09-15] MEDS ORDERED: fentaNYL (PF) 50 MCG/ML 2 ML AMP ONE (07:25)
[2024-09-15] MEDS ORDERED: WATER FOR INJECTION, STERILE 10 ML VIAL IV ONE (07:25)
[2024-09-15] MEDS ORDERED: ePHEDrine 50 MG/ML 1 ML VIAL ONE (07:25)
[2024-09-15] MEDS ORDERED: MIDAZOLAM 2 MG/2 ML VIAL ONE (07:25)
[2024-09-15] MEDS ORDERED: PROPOFOL 10 MG/ML 20 ML VIAL IV ONE (07:25)
[2024-09-15] MEDS ORDERED: LIDOCAINE 1% INJ 10MG/ML (20 ML MDV) ONE (07:25)
[2024-09-15] MEDS: IV FLUID CONTINUATION 1,000 ML IV ONE (07:30)
[2024-09-15] MEDS: GENTAMICIN 80 MG in SODIUM CHLORIDE 0.9% 200 ML IRRIGATION ONE (07:31)
[2024-09-15 07:35] LABS: Glucose,Whole Blood 204 mg/dL (70-110)
[2024-09-15] MEDS: INSULIN ASPART (NovoLOG) 100 UNIT/ML VIAL SQ ONE (07:35)
[2024-09-15 09:04] VITALS: TEMP 97.1
--- NOTE | 2024-09-15 09:11 | P.OP ---
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 He is impotent. He is failed medications and injections. He wishes for a penile implant. The cause of his impotence his vascular disease due to hypertension and diabetes. He comes for an inflatable penile implant the risks and complications of an outlined Description of Procedure: patient brought to the operating suite. He is given a general anesthetic. He is prepped and draped in early. A midline infrapubic incision is made. I dissect down through the corpora bilaterally. I expose the distal rectus. I cleaned the corpora cavernosum bilaterally. Stay stitches with 3-0 PDS are placed in each corpora. Bilateral corporotomies were made. I dissect proximally and distally with Metzenbaum scissors and then Hegar dilators 9-13. Measured the corpora at 17 cm. Therefore a 15 cm implant +2 cm tip jigsawyer will be used to. I then open the rectus fascia. A clean the area prevesical he. I inserted the prepared 65 mL balloon into the prevesical space behind the rectus muscle. I bring the tubing out the right external ring. I closed the rectus fascia with running 0 PDS after the balloon was filled with 65 mL of saline. Using the Juan needle and Pilar introducer I advanced the introducer into the distal corpora bilaterally and passed the needles through the corpora bilaterally. The implants seat nicely proximally. I inflate the implant inflates without buckling. I then closed the corporotomies with 3-[address] the pump in the right hemiscrotum. I connected the pump to the reservoir with straight connects. I get inflate and deflate the implant. A irrigate thoroughly and then closed the wound with 3-0 chromic and then 4-0 Vicryl. Blood loss is at most 50 mL. The patient is awakened and returned recovery in good condition. He'll be discharged home upon recovery and found the office in one week.
[2024-09-15 09:17] LABS: Glucose,Whole Blood 187 mg/dL (70-110)
[2024-09-15] MEDS: HYDROmorphone 0.5 MG/0.5 ML SYRINGE IVP PRN (09:47)
[2024-09-15] MEDS: HYDROcodone/APAP 5-325MG 1 EACH TAB PO STA (10:56)
[2024-09-15 11:04] VITALS: RESP 18
[2024-09-15 11:33] VITALS: BP 159/94; PULSE 99
== END 2024-09-15 12:08 | disposition home or self-care (01) ==
LOC: OR 06:22
PROVIDERS: ATTEND Urology
DX: N52.9 Male erectile dysfunction, unspecified (principal); E11.59 Type 2 diabetes mellitus with other circulatory complications; I10 Essential (primary) hypertension; E78.5 Hyperlipidemia, unspecified; K21.9 Gastro-esophageal reflux disease without esophagitis; F32.A Depression, unspecified; F41.9 Anxiety disorder, unspecified; N40.1 Benign prostatic hyperplasia with lower urinary tract symptoms; Z98.890 Other specified postprocedural states; Z79.84 Long term (current) use of oral hypoglycemic drugs; Z79.82 Long term (current) use of aspirin; Z79.899 Other long term (current) drug therapy
CPT/HCPCS: 54410; J2250; J1580; J1100; J2405; J2003; J3010; J2704; J1171; J2371

== ENCOUNTER → 2024-10-25 | Outpatient (CLI) | payer BC | END | disposition home or self-care (01) | LOC: LABWHC1 08:58 | PROVIDERS: ATTEND Urology | DX: R97.20 Elevated prostate specific antigen [PSA] (principal) | CPT/HCPCS: 36415; 84153 ==

== ENCOUNTER → 2024-10-27 | Day surgery (SDC) | payer BC, MEDICARE ==
[2024-10-25 15:21] VITALS: BMI 28.3
[~2024-10-27] MED LIST changes: -AMPICILLIN 1,000 MG in SODIUM CHLORIDE 0.9% 50 ML IVPB PRN; -GENTAMICIN 120 MG in SODIUM CHLORIDE 0.9% 100 ML IVPB PRN; +LIDOCAINE 2% (PF) 20 MG/ML 5 ML VIAL ONE; +PROPOFOL 10 MG/ML 20 ML VIAL IV ONE
[2024-10-27] MEDS: IV FLUID CONTINUATION 1,000 ML IV ONE (10:14)
[2024-10-27 10:24] VITALS: TEMP 97.6
[2024-10-27 10:40] LABS: Glucose,Whole Blood 176 mg/dL (70-110)
--- NOTE | 2024-10-27 11:22 | P.PCN ---
Date of Procedure: 10/27/24 Procedure(s) Performed: Brief history: Patient is a pleasant 68-year-old white male scheduled for an elective upper endoscopy as well as colonoscopy as a part of evaluation of longstanding history of GERD and screening for prior history of colon polyps. Last colonoscopy was done 4 years ago and was noted to have a tubular adenoma. Procedure performed: Esophagogastroduodenoscopy with biopsy Colonoscopy with biopsy Preoperative diagnosis: Longstanding history of GERD Screening for history of colon polyps/tubular adenoma Anesthesia: MAC Procedure: After informed consent was obtained from the patient was brought into the endoscopy unit and IV sedation was administered by anesthesia under continuous monitoring. Initially upper endoscopy was done. The Olympus GF 160 video endoscope was inserted inserted into the mouth and esophagus intubated without any difficulty and was gradually advanced into the stomach and duodenum and carefully examined. The bulb and second part of the duodenum appeared normal. The scope was then withdrawn into the stomach adequately insufflated with air and upon careful examination the antrum and linear areas of erythema consistent with gastritis and a 3 mm antral polyp identified and biopsies were done from this area. Mucosa of the d body, cardia and fundus appeared normal. The scope was then withdrawn into the esophagus. The GE junction was located at 40 cm to the incisors. It appeared regular with no erythema erosions or ulcerations. Rest of the esophagus appeared normal. Patient tolerated the procedure well. At this time the patient continued to remain sedation. Initial digital rectal examination was normal. Olympus CF 160 video colonoscope was then inserted into the rectum and gradually advanced to the cecum without any difficulty. Careful examination was performed as the scope was gradually being withdrawn. The prep was excellent. The cecum, ascending colon, appeared normal. The transverse colon there was a 4 mm polyp that was removed by cold biopsy. Rest of transverse colon, descending colon, sigmoid colon and rectum appeared normal. Katter sigmoid diverticulosis. Retroflexion was performed in the rectum and small internal were noted. Patient tolerated the procedure well. Impression: 1. Upper endoscopy revealed mild antral gastritis and 3 mm antral polyp dispose biopsy. No evidence of esophagitis or peptic ulcer disease 2. Colonoscopy revealed a 4 mm transverse colon polyp status post removed by cold biopsy, scattered sigmoid diverticulosis and small internal hemorrhoids Recommendations: Findings of this examination were discussed with the patient as well as his family. He was advised to follow with the biopsy results. Continue with omeprazole 20 mg daily and follow antireflux measures. Recommend repeat colonoscopy in 5 years from now based on the biopsy results.
[2024-10-27 11:27] VITALS: RESP 16
[2024-10-27 12:00] VITALS: BP 131/75; PULSE 70
== END ==
LOC: ORWHC2ENDO 09:54
PROVIDERS: ATTEND Internal Medicine Gastroenterology
DX: K29.50 Unspecified chronic gastritis without bleeding (principal); K63.5 Polyp of colon; K21.9 Gastro-esophageal reflux disease without esophagitis; K57.30 Diverticulosis of large intestine without perforation or abscess without bleeding; K64.8 Other hemorrhoids; K31.A11 Gastric intestinal metaplasia without dysplasia, involving the antrum; I10 Essential (primary) hypertension; E78.5 Hyperlipidemia, unspecified; E11.9 Type 2 diabetes mellitus without complications; N40.0 Benign prostatic hyperplasia without lower urinary tract symptoms; F31.9 Bipolar disorder, unspecified; F43.10 Post-traumatic stress disorder, unspecified; Z86.0101 Personal history of adenomatous and serrated colon polyps; Z79.84 Long term (current) use of oral hypoglycemic drugs; Z79.82 Long term (current) use of aspirin; Z79.899 Other long term (current) drug therapy
CPT/HCPCS: 45380; 43239; J2704; J2003; 88305

== ENCOUNTER 2024-12-27 14:35 | Emergency (ER) | payer BC ==
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
--- NOTE | 2024-12-27 15:57 | XR ---
EXAMINATION TYPE: XR chest 2V DATE OF EXAM: 12/27/2024 CLINICAL INDICATION: Male, 69 years old with history of Chest Pain, TECHNIQUE: Frontal and lateral views of the chest are obtained. COMPARISON: CTA chest June 01, 2024 FINDINGS: There is no focal air space opacity, pleural effusion, or pneumothorax seen. The cardiac silhouette size is within normal limits. The osseous structures are intact. IMPRESSION: No acute process. [facility], , 12/27/2024 3:55 PM
[2024-12-27 15:59] LABS: Basophils % (A) 1 %; Eosinophils # (A) 0.2 k/uL (0-0.7); Eosinophils % (A) 4 %; HCT 43.8 % (39.0-53.0); Lymphocytes # (A) 1.5 k/uL (1.0-4.8); Lymphocytes % (A) 28 %; MCH 28.9 pg (25.0-35.0); MCHC 34.3 g/dL (31.0-37.0); MCV 84.2 fL (80.0-100.0); Mean Platelet Volume 8.1; Monocytes # (A) 0.3 k/uL (0-1.0); Monocytes % (A) 6 %; Neutrophils # (A) 3.2 k/uL (1.3-7.7); Neutrophils % (A) 61 %; Platelet Count 170 k/uL (150-450); RDW 13.5 % (11.5-15.5); WBC 5.2 k/uL (3.8-10.6)
[2024-12-27 16:11] LABS: ALT 36 U/L (4-49); AST 28 U/L (17-59); African American GFR (CKD) >90 (>60 ml/min/1.73 sqM); Albumin 4.4 g/dL (3.5-5.0); Alkaline Phosphatase 122 U/L (38-126); Anion Gap 10 mmol/L; Blood Urea Nitrogen 13 mg/dL (9-20); Calcium 9.4 mg/dL (8.4-10.2); Carbon Dioxide 26 mmol/L (22-30); Chloride 101 mmol/L (98-107); Glucose 254 mg/dL (74-99); Magnesium 1.6 mg/dL (1.6-2.3); Non-African American GFR(CKD) >90 (>60 ml/min/1.73 sqM); Potassium 3.9 mmol/L (3.5-5.1); Sodium 137 mmol/L (137-145); Total Bilirubin 0.5 mg/dL (0.2-1.3); Total Protein 7.5 g/dL (6.3-8.2)
[2024-12-27 16:17] LABS: INR 0.9 (<1.2); Partial Thromboplastin Time 23.9 sec (22.0-30.0); Prothrombin Time 10.5 sec (10.0-12.5)
[2024-12-27 19:48] LABS: Glucose,Whole Blood 143 mg/dL (70-110)
[2024-12-27 19:49] VITALS: TEMP 98.1
[2024-12-27] MEDS: LOSARTAN 50 MG TAB PO STA (21:23)
[2024-12-27] MEDS: amLODIPine 5 MG TAB PO STA (21:24)
[2024-12-27 21:42] VITALS: BP 140/96; PULSE 75; RESP 18
== END 2024-12-27 21:43 | disposition home or self-care (01) ==
LOC: EC 14:35
DX: R07.9 Chest pain, unspecified (principal)
CPT/HCPCS: 36415; 71046; 80053; 83735; 84484; 85025; 85610; 85730; 93005; 99285